=== PATIENT | male | born 1965 | race African-American/Black ===

== ENCOUNTER 2021-02-11 04:59 | Emergency (ER) | payer MEDICAID ==
[~2021-02-11] VITALS: Ht 172.7 cm; Wt 84.0 kg
[2021-02-11] MEDS ORDERED: OLANZAPINE 10 MG/VIAL IM ONE (05:30)
[2021-02-11] MEDS ORDERED: LORAZEPAM 2MG/ML CPJ IV ONE (05:30)
[2021-02-11] MEDS ORDERED: SODIUM CHLORIDE 0.9% 1,000 ML IV ONE (05:30)
[2021-02-11] MEDS ORDERED: KETAMINE HCL 50 MG/ML 10ML IM ONE (05:45)
[2021-02-11 06:24] LABS: BASOPHILS % 0.3 % (0.0-2.0); EOSINOPHILS % 0.4 % (0.0-5.0); HEMATOCRIT. 41.1 % (42.0-52.0); HEMOGLOBIN. 13.6 g/dL (14.0-18.0); LYMPHOCYTES % 11.3 % (20.0-50.0); MEAN CORPUSCULAR HEMOGLOBIN 29.3 pg (28.0-32.0); MEAN CORPUSCULAR VOLUME 88.4 fL (80.0-94.0); MEAN PLATELET VOLUME 8.2 fl (7.4-10.4); MONOCYTES % 3.6 % (2.0-8.0); NEUTROPHILS % 84.4 % (40.0-76.0); PLATELET 344 x1000/uL (130-400); RED BLOOD CELL COUNT 4.64 mill/uL (4.7-6.1); RED CELL DISTRIBUTION WIDTH 14.6 % (11.6-14.6)
[2021-02-11 06:28] LABS: CHLORIDE 105 mEq/L (98-107)
[2021-02-11 06:34] LABS: ETHANOL BLOOD 18 mg/dL
[2021-02-11 08:03] LABS: *BARBITURATES SCREEN URINE NEGATIVE (NEGATIVE); CANNABINOID URINE SCREEN PRESUMTIVE POSITIVE (NEGATIVE); OPIATES URINE SCREEN NEGATIVE (NEGATIVE); PHENCYCLIDINE URINE SCREEN NEGATIVE (NEGATIVE)
[2021-02-11 08:04] LABS: *AMPHETAMINES SCREEN URINE PRESUMTIVE POSITIVE (NEGATIVE); *BENZODIAZEPINES SCREEN URINE NEGATIVE (NEGATIVE); *COCAINE SCREEN URINE PRESUMTIVE POSITIVE (NEGATIVE); METHADONE URINE SCREEN NEGATIVE (NEGATIVE)
[2021-02-11] MEDS ORDERED: POTASSIUM CHLORIDE INJ 40 MEQ in DEXT 5% WATER 250 ML IV NR (09:00)
[2021-02-12] MEDS: ONDANSETRON HCL 4MG/2ML INJ IV PRN ×2 (02:16→03:36)
[2021-02-12 03:30] VITALS: BP 124/73
== END 2021-02-12 04:30 | disposition home or self-care (01) ==
LOC: EDBD 04:59 → ER 04:59
DX: R45.1 Restlessness and agitation (principal); R51.9 Headache, unspecified; I49.9 Cardiac arrhythmia, unspecified
CPT/HCPCS: 36415; 70450; 71045; 80053; 80305; 80320; 85025; 93005; 96361; 96365; 96372; 96375; 99291; J2405; J3480; J3490; J7030; J7060; Z7610; G0480